=== PATIENT | female | born 1955 | race Caucasian/White ===

== ENCOUNTER 2016-06-13 12:59 | Emergency (ER) | payer BC, OTHER ==
[2016-06-13] MEDS ORDERED: SODIUM CHLORIDE 0.9% 500 ML IV ONE (13:46)
[2016-06-13] MEDS ORDERED: ONDANSETRON 4 MG/2 ML VIAL IVP STA (13:46)
[2016-06-13] MEDS ORDERED: fentaNYL 100 MCG/2 ML VIAL IVP STA (13:46)
[2016-06-13] MEDS ORDERED: fentaNYL 100 MCG/2 ML VIAL ONE (13:53)
[2016-06-13] MEDS ORDERED: ONDANSETRON 4 MG/2 ML VIAL ONE (13:53)
[2016-06-13] MEDS ORDERED: IOPAMIDOL-300 100 ML VIAL IVP ONE (15:20)
[2016-06-13] MEDS ORDERED: ACETAMINOPHEN 1,000 MG/100 ML 100 ML IV STA (15:43)
[2016-06-13] MEDS ORDERED: ACETAMINOPHEN 1,000 MG/100 ML 100 ML IV ONE (15:45)
== END 2016-06-13 16:54 | disposition home or self-care (01) ==
DX: R07.89 Other chest pain (principal); I48.91 Unspecified atrial fibrillation; Z79.01 Long term (current) use of anticoagulants; I10 Essential (primary) hypertension; Z86.73 Personal history of transient ischemic attack (TIA), and cerebral infarction without residual deficits
CPT/HCPCS: 36415; 70450; 71010; 71275; 80053; 81001; 83690; 84484; 85025; 85610; 93005; 93010; 96365; 96375; 99284; J0131; Q9967

== ENCOUNTER 2016-10-23 14:18 | Outpatient (CLI) | payer OTHER, BC | END 2016-10-23 14:19 | disposition home or self-care (01) | LOC: SC 14:18 | PROVIDERS: ATTEND Specialist | DX: G47.30 Sleep apnea, unspecified (principal); G47.8 Other sleep disorders; R06.83 Snoring; G47.10 Hypersomnia, unspecified | CPT/HCPCS: 99204; 99212 ==

== ENCOUNTER 2016-11-30 20:03 | Outpatient (CLI) | payer OTHER, BC | END 2016-11-30 20:04 | disposition home or self-care (01) | LOC: SC 20:03 | PROVIDERS: ATTEND Specialist | DX: G47.33 Obstructive sleep apnea (adult) (pediatric) (principal); G47.61 Periodic limb movement disorder | CPT/HCPCS: 95810 ==

== ENCOUNTER 2016-12-03 15:44 | Outpatient (CLI) | payer OTHER, BC ==
--- NOTE | 2016-12-04 16:48 | Mammography Report ---
DIGITAL SCREENING MAMMOGRAM: 12/03/2016 CLINICAL INDICATION: A 61-year-old with history of benign right breast biopsy for screening. COMPARISON: 06/2014, 03/2013, 11/2011, 11/2010, 10/2009, 10/2008, 04/2007, 04/2006 TECHNIQUE: Routine CC and MLO projections were obtained of the breasts. FINDINGS: The breasts again demonstrate heterogeneously dense fibroglandular parenchyma bilaterally. Intramammary lymph nodes are stable. No suspicious masses, clustered microcalcifications, or regio ns of architectural distortion are identified. IMPRESSION: BENIGN FINDINGS. RECOMMENDATION: Routine annual screening unless otherwise clinically indicated. BIRADS CATEGORY 2 - BENIGN FINDINGS. STANDARD QUALIFYING STATEMENTS 1. This examination was reviewed with the aid of Computer-Aided Detection (CAD). 2. A negative or benign imaging report should not delay biopsy if clinically suspicious findings are present. Consider surgical consultation if warranted. More than 5% of cancers are not identified by i maging. 3. Dense breasts may obscure an underlying neoplasm. JOB #: [id number] EXT JOB #:[id number]
== END 2016-12-03 15:45 | disposition home or self-care (01) ==
LOC: DI.N 15:44
PROVIDERS: ATTEND Family Medicine
DX: Z12.31 Encounter for screening mammogram for malignant neoplasm of breast (principal)
CPT/HCPCS: 77067

== ENCOUNTER 2016-12-18 15:27 | Outpatient (CLI) | payer OTHER, BC | END 2016-12-18 15:28 | disposition home or self-care (01) | LOC: SC 15:27 | PROVIDERS: ATTEND Specialist | DX: G47.33 Obstructive sleep apnea (adult) (pediatric) (principal); R53.83 Other fatigue | CPT/HCPCS: 99212; 99213 ==

== ENCOUNTER 2018-07-22 08:00 | Outpatient (CLI) | payer MEDICARE, BC | END 2018-07-22 23:59 | disposition home or self-care (01) | LOC: LAB.WCP 08:00 | PROVIDERS: ATTEND Family Medicine | DX: Z51.81 Encounter for therapeutic drug level monitoring (principal); Z79.01 Long term (current) use of anticoagulants ==

== ENCOUNTER 2020-01-18 12:35 | Outpatient (CLI) | payer MEDICARE, BC, OTHER | END 2020-01-18 12:36 | disposition home or self-care (01) | LOC: LAB 12:35 | PROVIDERS: ATTEND Ophthalmology | DX: Z01.818 Encounter for other preprocedural examination (principal); H25.11 Age-related nuclear cataract, right eye; Z20.828 Contact with and (suspected) exposure to other viral communicable diseases ==

== ENCOUNTER 2020-01-21 07:59 | Day surgery (SDC) | payer OTHER ==
[~2020-01-21 07:59] MED LIST: CYCLOPENTOLATE 1% OPHTH DROPS 2 ML ONE; KETOROLAC 0.45% OPHTH DROPS ONE; PHENYLEPHRINE 2.5% OPHTH 2 ML DROPS ONE; PROPARACAINE 0.5% OPHTH DROPS 15 ML ONE
[2020-01-21] MEDS ORDERED: LACTATED RINGERS 500 ML IV ONE ×2 (08:15→10:10)
--- NOTE | 2020-01-21 08:44 | ANESTHESIA ---
Pre-Anesthesia VS, & Labs - Diagnosis right senile cataract - Procedure right cataract extraction with iol Vital Signs: Temp Pulse Resp BP Pulse Ox 37.2 C 103 H 18 151/60 H 95 01/21/20 08:15 01/21/20 08:15 01/21/20 08:15 01/21/20 08:15 01/21/20 08:15 Height: 5 ft 3 in Weight (kg): 105.5 kg Body Mass Index: 41.2 BMI Classification: Morbidly Obese - NPO >8 hours - Is Patient ?: No Home Medications and Allergies Home Medications: Ambulatory Orders Potassium Chloride [K-Dur] 20 meq PO DAILY 01/21/20 Cetirizine HCl [Zyrtec] 10 mg PO DAILY 08/09/14 Levothyroxine [Synthroid] 100 mcg PO DAILY 08/09/14 Warfarin [Coumadin] 5 mg PO DAILY 08/09/14 diltiaZEM CD [Cardizem Cd] 240 mg PO DAILY 08/09/14 Albuterol Sulfate [Proair Hfa Inhaler] 1 mg INH DAILY 06/13/16 Budesonide/Formoterol 80/4.5 [Symbicort] 2 mg PO BID 06/13/16 Estrogen,Con/M-Progest Acet [Prempro 0.625-2.5 mg Tablet] 1 ea PO DAILY 06/13/16 Folic Acid 0.8 mg PO DAILY 06/13/16 Levalbuterol Tartrate [Xopenex Hfa] 1 mg INH DAILY 06/13/16 Pantoprazole Sodium 40 mg PO DAILY 06/13/16 Theophylline [Theodur] 200 mg PO DAILY 06/13/16 Vit D 06/13/16 allopurinoL [Allopurinol] 100 mg PO DAILY 06/13/16 diphenhydrAMINE [Benadryl] 25 mg PO DAILY 06/13/16 Potassium Chloride [K-Dur] 20 meq PO DAILY 01/21/20 Allergies/Adverse Reactions: Allergies Allergy/AdvReac Type Severity Reaction Status Date / Time codeine Allergy Hives Verified 08/09/14 13:48 morphine Allergy Hives Verified 08/09/14 13:48 Anes History & Medical History - Anesthetic History Anesthesia Complications: reports: No previous complications - Medical History Cardiovascular: reports: Hypertension, High cholesterol, Atrial fibrillation (on coumadin, SR today, patient states goes in and out.) Pulmonary: reports: Asthma, Pneumonia Gastrointestinal: reports: GERD, Cholelithiasis Urinary: reports: Frequency Neuro: reports: CVA (left weakness as only residual) Musculoskeletal: reports: Osteoarthritis, Gout Endocrine/Autoimmune: reports: HyPOthyroidism Skin: reports: None Smoking Status: Never smoker - Surgical History General: Cholecystectomy, Gastric surgery Gynecologic: Other Orthopedic: Knee replacement Exam Dental: WNL Mouth Opening: Greater than 4 Fingerbreadths Neck Mobility: Normal Mallampati classification: III Thyromental Distance: greater than 6 cm Respiratory: Lungs clear Cardiovascular: Regular rate, Normal S1, Normal S2 Mental/Cognitive Status: Alert/Oriented X3 Plan Anesthesia Type: MAC Consent for Procedure(s) Verified and Reviewed: Yes Code Status: Attempt Resuscitation ASA classification: 3-Severe systemic disease Is this case an emergency?: No
[2020-01-21] MEDS ORDERED: TIMOLOL 0.5% OPHTH DROPS ONE (09:33)
[2020-01-21] MEDS ORDERED: TRIAMCIN/MOXIFLOX OPHTHALMIC 0.6 ML VIAL IO ONE ×2 (09:33→09:44)
[2020-01-21] MEDS ORDERED: BSS/LIDOCAINE/EPINEPHRINE 1 ML SYRINGE ONE (09:33)
[2020-01-21] MEDS ORDERED: VANCOMYCIN OPHTHALMI 8MG/0.8ML 8 MG/0.8 ML SYRINGE IO ONE ×2 (09:33→09:44)
[2020-01-21] MEDS ORDERED: BRIMONIDINE 0.2% OPHTH DROPS 5 ML ONE (09:33)
[2020-01-21] MEDS ORDERED: EPINEPHrine 1 MG/ML AMP ONE (09:33)
[2020-01-21] MEDS ORDERED: BRIMONIDINE 0.2% OPHTH DROPS 5 ML OPTH ONE (09:41)
[2020-01-21] MEDS ORDERED: EPINEPHrine 1 MG/ML AMP IR ONE (09:42)
[2020-01-21] MEDS ORDERED: MIDAZOLAM 2 MG/2 ML VIAL IVP ONE (09:42)
[2020-01-21] MEDS ORDERED: CHONDR SULF/HYALURONATE SYRINGE IO ONE (09:42)
[2020-01-21] MEDS ORDERED: TIMOLOL 0.5% OPHTH DROPS OPTH ONE (09:43)
[2020-01-21] MEDS ORDERED: ROPIVACAINE 0.2% PF 10 ML AMPULE EPI ONE (09:43)
[2020-01-21] MEDS ORDERED: PROPARACAINE 0.5% OPHTH DROPS 15 ML EACHEYE ONE (09:44)
[2020-01-21 10:29] VITALS: BP 136/55
--- NOTE | 2020-01-21 12:47 | OPERATIVE REPORT ---
DATE OF SERVICE: 01/21/2020 Physician: Lew Steen MD PREOPERATIVE DIAGNOSIS: Visually significant cataract, right eye. This was her first cataract surge ry. POSTOPERATIVE DIAGNOSIS: Visually significant cataract, right eye. This was her first cataract surg ethan. PROCEDURE: Phacoemulsification with posterior chamber intraocular lens implant, right eye. SURGEON: Lew Steen MD ANESTHESIA: Monitored anesthesia care. COMPLICATIONS: None. OPERATIVE INDICATIONS: This is a 64-year-old woman with progressive vision loss in the right eye due to 3+ nuclear sclerotic cataract. Best corrected visual acuity was 20/25, with glare to hand motion vision in the right eye. Indications for surgery are overall decrease in vision, difficulty seeing words on a computer screen, difficulty reading, difficulty seeing words, closed caption or game score s on TV, difficulty seeing street signs, difficulty driving in low light or at night, difficulty driv ing at night because of headlights from other vehicles, and difficulty with glare or bright lights in any situation. She was consented at length concerning risks and benefits of cataract surgery, after which she expressed a desire to proceed with surgery. OPERATIVE PROCEDURE: The patient was taken to OR #3 and placed under monitored anesthesia care. A s urgical timeout was conducted confirming correct patient, correct procedure, and correct surgical sit e. She was given topical anesthesia, and prepped and draped in the usual sterile fashion. The eye w as entered at the 12 and 9 o'clock positions. Intracameral Shugarcaine was injected into the anterio r chamber, followed by Viscoat. A continuous-tear curvilinear capsulorrhexis was performed. The nuc leus was hydrodissected and phacoemulsified. The cortex was evacuated using automated infusion and a spiration. Provisc was injected in the capsular bag, and a 19.0 diopter intraocular lens was inserte d into the bag. Infusion and aspiration was used to evacuate the viscoelastic materials. The eye wa s inflated to physiologic pressure using balanced salt solution and found to be watertight. Approxim ately 0.25 mL of a mixture of triamcinolone and moxifloxacin was injected transsclerally into the vit reous in the inferotemporal quadrant. An additional 0.55 mL of a mixture of triamcinolone, moxifloxa patrick and vancomycin was injected subconjunctivally in the superior quadrant for infection and inflamma tion prophylaxis. Wound integrity was checked with Weck-Anamika sponges. The patient was taken from the Operating Room in good condition good condition and given postoperative instructions. TD: 01/21/2020 10:11
--- NOTE | 2020-01-21 13:26 | ANESTHESIA POST OP EVALUATION ---
Anesthesia Post Eval - Post Anesthesia Eval Vitals: Last Vital Signs Temp 36.7 C 01/21/20 10:15 Pulse 90 01/21/20 10:15 Resp 16 01/21/20 10:15 BP 136/55 H 01/21/20 10:15 Pulse Ox 100 01/21/20 10:15 CV Function Including HR & BP: positive: Stable Pain Control: positive: Satisfactory Nausea & Vomiting: positive: Negative Mental Status: positive: Patient Participates Respiratory Status: Airway Patent Hydration Status: Satisfactory Anesthesia Complications: positive: None
== END 2020-01-21 08:00 | disposition home or self-care (01) ==
LOC: SDS 07:59
PROVIDERS: ATTEND Ophthalmology
DX: H25.11 Age-related nuclear cataract, right eye (principal); I48.91 Unspecified atrial fibrillation; I10 Essential (primary) hypertension; J45.909 Unspecified asthma, uncomplicated; K21.9 Gastro-esophageal reflux disease without esophagitis; E78.00 Pure hypercholesterolemia, unspecified; E66.01 Morbid (severe) obesity due to excess calories; Z68.41 Body mass index [BMI] 40.0-44.9, adult; I69.954 Hemiplegia and hemiparesis following unspecified cerebrovascular disease affecting left non-dominant side; M10.9 Gout, unspecified; M19.90 Unspecified osteoarthritis, unspecified site; E03.9 Hypothyroidism, unspecified; R35.0 Frequency of micturition; Z79.01 Long term (current) use of anticoagulants; Z79.51 Long term (current) use of inhaled steroids
CPT/HCPCS: 66984; A9270; J3490; J7120; V2632

== ENCOUNTER 2020-01-27 08:00 | Outpatient (CLI) | payer BC, MEDICARE, OTHER | END 2020-01-27 23:59 | disposition home or self-care (01) | LOC: LAB.WCP 08:00 | PROVIDERS: ATTEND Family Medicine | DX: Z79.01 Long term (current) use of anticoagulants (principal) ==

== ENCOUNTER 2020-08-18 15:32 | Outpatient (CLI) | payer OTHER ==
--- NOTE | 2020-08-19 09:38 | Mammography Report ---
BILATERAL DIGITAL SCREENING MAMMOGRAM 3D/2D: 08/18/2020 CLINICAL: Family history of breast cancer. Routine screening. Comparison is made to exams dated: 12/10/2018 mammogram, 12/03/2016 mammogram, 07/23/2014 mammogram, mammogram - [facility], 03/06/2012 mammogram, and 12/26/2010 mammogram - [facility]. The tissue of both breasts is predominantly fatty. There is a new irregular asymmetry with an indistinct margin in the left breast middle depth central to the nipple seen on the craniocaudal view only. No other significant masses, calcifications, or other findings are seen in either breast. IMPRESSION: INCOMPLETE: NEEDS ADDITIONAL IMAGING EVALUATION The new irregular asymmetry in the left breast is indeterminate. Additional views with possible ultr asound are recommended. This exam was interpreted at Station ID: [id number]. NOTE: For mammograms, a report in lay terms will be sent to the patient. Approximately 15% of breast malignancies will not be visualized mammographically. In the management of a palpable breast mass, a negative mammogram must not discourage biopsy of a clinically suspicious lesion. Electronically Signed By: Riki Weaver acr/:08/18/2020 16:49:31 ACR BI-RADS Category 0: Incomplete 3340F PARENCHYMAL PATTERN: (F) - The breast(s) demonstrate(s) diffuse fatty replacement. BI-RADS CATEGORY: (0) - 0 Mammo and [place] [id number] Immediate follow-up LATERALITY: (L)
== END 2020-08-18 15:33 | disposition home or self-care (01) ==
LOC: DI.N 15:32
PROVIDERS: ATTEND Nurse Practitioner Acute Care
DX: Z12.31 Encounter for screening mammogram for malignant neoplasm of breast (principal); Z85.3 Personal history of malignant neoplasm of breast

== ENCOUNTER 2020-10-27 09:23 | Outpatient (CLI) | payer OTHER ==
--- NOTE | 2020-10-28 11:25 | Mammography Report ---
UNILATERAL LEFT DIGITAL DIAGNOSTIC MAMMOGRAM 3D/2D: 10/27/2020 CLINICAL: Patient returns today to evaluate an asymmetry in the left breast. Comparison is made to exams dated: 08/18/2020 mammogram, 12/10/2018 mammogram, 12/03/2016 mammogram, 06/28 mammogram, 04/14/2013 mammogram - [facility], and 03/06/2012 mammogram - [facility]. The tissue of left breast is predominantly fatty. There is an oval fat containing asymmetry in the left breast middle depth central to the nipple seen on the craniocaudal view only. No other significant masses or calcifications are seen in the breast. IMPRESSION: INCOMPLETE: NEEDS ADDITIONAL IMAGING EVALUATION The oval fat containing asymmetry in the left breast most likely is an intramammary node but this is not definitive. An ultrasound will be performed for further evaluation. This exam was interpreted at Station ID: [id number]. NOTE: For mammograms, a report in lay terms will be sent to the patient. Approximately 15% of breast malignancies will not be visualized mammographically. In the management of a palpable breast mass, a negative mammogram must not discourage biopsy of a clinically suspicious lesion. Electronically Signed By: Jose Lambert M.D. jr/:10/27/2020 10:36:47 ACR BI-RADS Category 0: Incomplete 3340F PARENCHYMAL PATTERN: (F) - The breast(s) demonstrate(s) diffuse fatty replacement. BI-RADS CATEGORY: (0) - 0 RECOMMENDATION: (ADDMAM) - Recommend additional mammographic views. [id number] Immediate follow-up LATERALITY: (B)
--- NOTE | 2020-10-28 11:25 | Ultrasound Report ---
LIMITED ULTRASOUND OF LEFT BREAST: 10/27/2020 CLINICAL: Patient returns today to evaluate a focal asymmetry in the left breast. Comparison is made to exams dated: 10/27/2020 mammogram, 08/18/2020 mammogram, 12/10/2018 mammogram, 12/03 mammogram, 07/23/2014 mammogram, and 04/14/2013 mammogram - [facility]. Color flow and real-time ultrasound of the left breast 12-2 o'clock region were performed. Dinero sca le images of the real-time examination were reviewed. There is a benign lymph node in the left breast middle depth. IMPRESSION: BENIGN There is no sonographic evidence of malignancy. The lymph node in the left breast is benign. Return to annual mammogram screening schedule is recommended. This exam was interpreted at Station ID: [id number]. Electronically Signed By: Jose Lambert M.D., jr/nitesh:10/27/2020 10:46:17 Ultrasound BI-RADS: 2 Benign BI-RADS CATEGORY: (2) - 2 Mammogram [id number] return to screening LATERALITY: (B)
== END 2020-10-27 09:24 | disposition home or self-care (01) ==
LOC: DI 09:23
PROVIDERS: ATTEND Nurse Practitioner Acute Care
DX: R92.8 Other abnormal and inconclusive findings on diagnostic imaging of breast (principal)

== ENCOUNTER 2021-05-19 08:00 | Outpatient (CLI) | payer BC, MEDICARE, OTHER ==
[2021-05-19 12:30] LABS: BASOPHILS # (AUTO) 0.1 10^3/uL (0.0-0.1); EOSINOPHILS # (AUTO) 0.1 10^3/uL (0.0-0.7); EOSINOPHILS % (AUTO) 1.6 %; HCT - HEMATOCRIT 41.4 % (37.0-47.0); LYMPHOCYTES # (AUTO) 2.2 10^3/uL (1.5-3.5); LYMPHOCYTES % (AUTO) 27.6 %; MEAN CORPUSCULAR HGB CONC 31.4 g/dL (32.0-36.0); MEAN CORPUSCULAR VOLUME 95.6 fL (81.0-99.0); MEAN PLATELET VOLUME 10.6 fL (7.9-10.8); MONOCYTES # (AUTO) 0.4 10^3/uL (0.0-1.0); MONOCYTES % (AUTO) 5.2 %; PLT - PLATELET COUNT 314 10^3/uL (130-450); RED BLOOD COUNT 4.33 10^6/uL (4.20-5.40); RED CELL DISTRIBUTION WIDTH 13.4 % (12.0-15.0); WHITE BLOOD COUNT 7.9 x10^3/uL (4.8-10.8)
[2021-05-19 12:48] LABS: ALBUMIN 4.2 g/dL (3.2-5.5); ALBUMIN/GLOBULIN RATIO 1.4 (1.0-2.2); ALKALINE PHOSPHATASE 126 IU/L (42-121); ALT ALANINE AMINOTRANSFERASE 14 IU/L (10-60); AST ASPARTATE AMINOTRANSFERASE 17 IU/L (10-42); BUN - BLOOD UREA NITROGEN 14 mg/dL (6-20); CALCIUM 9.5 mg/dL (8.5-10.3); CARBON DIOXIDE - CO2 22 mmol/L (21-32); CHLORIDE 103 mmol/L (101-111); CHOL/HDL RATIO 3.5 (<4.4); CHOLESTEROL 169 mg/dL; CREATININE 0.6 mg/dL (0.4-1.0); GFR - MDRD 99 (>89); GLUCOSE 107 mg/dL (70-100); HDL CHOLESTEROL 48 mg/dL; LDL CHOLESTEROL,CALCULATED 104 mg/dL; LDL/HDL RATIO 2.2 (<4.4); POTASSIUM 3.8 mmol/L (3.5-5.0); SODIUM 136 mmol/L (135-145); TOTAL PROTEIN 7.3 g/dL (6.7-8.2); TRIGLYCERIDES 86 mg/dL; VLDL CHOLESTEROL 17 mg/dL
[2021-05-19 13:19] LABS: ESTIMATED AVERAGE GLUCOSE 120 mg/dL (70-100); HEMOGLOBIN A1c% 5.8 % (4.27-6.07)
== END 2021-05-19 23:59 | disposition home or self-care (01) ==
LOC: LAB.WCP 08:00
PROVIDERS: ATTEND Family Medicine
DX: I10 Essential (primary) hypertension (principal); E66.9 Obesity, unspecified
CPT/HCPCS: 36415; 80053; 80061; 83036; 83721; 85025

== ENCOUNTER 2021-06-19 07:00 | Outpatient (CLI) | payer BC, MEDICARE, OTHER ==
[2021-06-19 12:29] LABS: FECAL OCCULT BLOOD (FIT) NEGATIVE (NEGATIVE)
== END 2021-06-19 23:59 | disposition home or self-care (01) ==
LOC: LAB.N 07:00
PROVIDERS: ATTEND Family Medicine
DX: Z12.11 Encounter for screening for malignant neoplasm of colon (principal)
CPT/HCPCS: 82274

== ENCOUNTER 2022-03-23 09:07 | Outpatient (CLI) | payer OTHER ==
--- NOTE | 2022-03-26 09:12 | Mammography Report ---
BILATERAL DIGITAL SCREENING MAMMOGRAM 3D/2D: 03/23/2022 CLINICAL: Routine screening. Comparison is made to exams dated: 10/27/2020 mammogram, 08/18/2020 mammogram, 12/10/2018 mammogram, 12/03 mammogram, and 07/23/2014 mammogram - [facility]. There are scattered areas of fibroglandular density in both breasts (category b / 25%-50% glandular t issue). No significant masses, calcifications, or other findings are seen in either breast. There has been no significant interval change. IMPRESSION: NEGATIVE There is no mammographic evidence of malignancy. A 1 year screening mammogram is recommended. Based on the Tyrer Cuzick model (a risk assessment model) the patients lifetime risk is 6.5% and her 10 year risk is 3.8%. According to the ACR, ACS, and NCCN guidelines, an annual breast MRI exam lizette g with mammogram is recommended if the patients lifetime risk is 20% or greater. This exam was interpreted at Station ID: [id number]. NOTE: For mammograms, a report in lay terms will be sent to the patient. Approximately 15% of breast malignancies will not be visualized mammographically. In the management of a palpable breast mass, a negative mammogram must not discourage biopsy of a clinically suspicious lesion. Electronically Signed By: Paulo albrecht/nitesh:03/23/2022 11:09:52 ACR BI-RADS Category 1: Negative 3341F PARENCHYMAL PATTERN: (A) - The breast(s) demonstrate(s) scattered fibroglandular densities. BI-RADS CATEGORY: (1) - 1 RECOMMENDATION: (ANNUAL) - Recommend routine annual screening mammography. [id number] 1 year screening LATERALITY: (B)
== END 2022-03-23 09:08 | disposition home or self-care (01) ==
LOC: DI 09:07
PROVIDERS: ATTEND Nurse Practitioner Acute Care
DX: Z12.31 Encounter for screening mammogram for malignant neoplasm of breast (principal)

== ENCOUNTER 2022-04-26 10:55 | Outpatient (CLI) | payer MEDICARE, BC ==
--- NOTE | 2022-04-26 13:14 | XRAY Report ---
PROCEDURE: Wrist 3 View RT INDICATIONS: NONDISPLACED FRACURE OF HEAD OF RIGHT RADIUS TECHNIQUE: 4 views of the wrist were acquired. COMPARISON: None FINDINGS: Bones: No displaced fracture is apparent. There is sclerosis in the distal radius. Questionable dorsa l cortical irregularity on lateral view. Scattered arthrosis, severe at the first CMC joint. Soft tissues: No suspicious calcifications. IMPRESSION: Possible nondisplaced injury of the distal radius with mild sclerosis and questionable dorsal cortica l irregularity, correlate for point tenderness. No relevant prior imaging is available at this time. Severe degenerative changes of the first CMC joint. Reviewed by: Juan Miguel Briseno MD on 04/26/2022 1:13 PM PST Approved by: Juan Miguel Briseno MD on 04/26/2022 1:13 PM PST Station ID: [id number]
== END 2022-04-26 10:56 | disposition home or self-care (01) ==
LOC: DI 10:55
PROVIDERS: ATTEND Physician Assistant Medical
DX: S52.124A Nondisplaced fracture of head of right radius, initial encounter for closed fracture (principal); M18.11 Unilateral primary osteoarthritis of first carpometacarpal joint, right hand

== ENCOUNTER 2022-08-02 09:55 | Outpatient (CLI) | payer MEDICARE, BC ==
--- NOTE | 2022-08-03 07:07 | DEXA Report ---
PROCEDURE: Dexa Spine and/or Hip INDICATIONS: POST MENOPAUSAL TECHNIQUE: Dual energy x-ray absorptiometry (DXA) was performed on a [address] [facility]. Regions measur ed are the AP Spine, femoral neck, and if needed forearm. COMPARISON: None. FINDINGS: Lumbar Spine: Bone Mineral Density 0.965 g/cm/cm,T score -1.9, osteopenia Left Femoral Neck: Bone Mineral Density 0.778 g/cm/cm, T score -1.9, osteopenia Left Hip: Bone Mineral Density 0.777 g/cm/cm,T score -1.8, osteopenia (T score greater or equal to -1.0: NORMAL) (T score from -1.1 to -2.4: OSTEOPENIA) (T score less than or equal to -2.5 to: OSTEOPOROSIS) Impression: Bone mineral density within the osteopenia range. Patients with diagnosis of osteoporosis or osteopenia should have regular bone mineral density assess ment. For those eligible for Medicare, routine testing is allowed once every 2 years. Testing frequ ency can be increased for patients who have rapidly progressing disease or for those who are receivin g medical therapy to restore bone mass. Reviewed by: Dave Richards MD on 08/02/2022 1:05 PM PDT Approved by: Dave Richards MD on 08/02/2022 1:05 PM PDT Station ID: [id number]
== END 2022-08-02 09:56 | disposition home or self-care (01) ==
LOC: DI 09:55
PROVIDERS: ATTEND Nurse Practitioner
DX: Z78.0 Asymptomatic menopausal state (principal); M85.89 Other specified disorders of bone density and structure, multiple sites

== ENCOUNTER 2023-02-25 12:00 | Outpatient (CLI) | payer MEDICARE, BC | END 2023-02-25 12:15 | disposition home or self-care (01) | LOC: LAB.N 12:00 | PROVIDERS: ATTEND Physician Assistant Medical | DX: N30.00 Acute cystitis without hematuria (principal) | CPT/HCPCS: 87086 ==

== ENCOUNTER 2023-03-12 08:00 | Outpatient (CLI) | payer MEDICARE, BC ==
[2023-03-12 18:28] LABS: BILIRUBIN,URINE NEGATIVE (NEGATIVE); GLUCOSE, URINE (UA) NEGATIVE (NEGATIVE); KETONES,URINE (UA) NEGATIVE (NEGATIVE); LEUKOCYTE ESTERASE, URINE NEGATIVE (NEGATIVE); NITRITE,URINE NEGATIVE (NEGATIVE); OCCULT BLOOD,URINE LARGE (NEGATIVE); PROTEIN,URINE 30 mg/dL (NEGATIVE); UROBILINOGEN,URINE 1 (NORMAL) E.U./dL (NORMAL)
[2023-03-12 18:50] LABS: CLARITY,URINE CLOUDY (CLEAR)
[2023-03-12 18:51] LABS: BACTERIA,URINE Few /HPF (None Seen); RBC,URINE TNTC /HPF (0-5); SQUAMOUS EPITHELIAL CELL,UR RARE Squamous (<= Few); WBC,URINE 0-3 /HPF (0-5)
== END 2023-03-12 23:59 | disposition home or self-care (01) ==
LOC: LAB.WCP 08:00
PROVIDERS: ATTEND Physician Assistant
DX: N30.01 Acute cystitis with hematuria (principal)
CPT/HCPCS: 81001; 87086

== ENCOUNTER 2023-03-20 11:00 | Outpatient (CLI) | payer MEDICARE, BC ==
[2023-03-20 11:13] LABS: BASOPHILS # (AUTO) 0.1 10^3/uL (0.0-0.1); BASOPHILS % (AUTO) 0.8 %; EOSINOPHILS # (AUTO) 0.1 10^3/uL (0.0-0.7); EOSINOPHILS % (AUTO) 0.9 %; HCT - HEMATOCRIT 42.4 % (37.0-47.0); LYMPHOCYTES # (AUTO) 1.7 10^3/uL (1.5-3.5); LYMPHOCYTES % (AUTO) 19.3 %; MEAN CORPUSCULAR HEMOGLOBIN 29.7 pg (27.0-31.0); MEAN CORPUSCULAR HGB CONC 30.7 g/dL (32.0-36.0); MEAN PLATELET VOLUME 9.7 fL (7.9-10.8); MONOCYTES # (AUTO) 0.5 10^3/uL (0.0-1.0); MONOCYTES % (AUTO) 5.9 %; NEUTROPHILS # (AUTO) 6.2 10^3/uL (1.5-6.6); NEUTROPHILS % (AUTO) 72.4 %; PLT - PLATELET COUNT 327 10^3/uL (130-450); RED BLOOD COUNT 4.37 10^6/uL (4.20-5.40); RED CELL DISTRIBUTION WIDTH 13.2 % (12.0-15.0); WHITE BLOOD COUNT 8.5 x10^3/uL (4.8-10.8)
[2023-03-20 11:28] LABS: ALBUMIN 4.5 g/dL (3.2-5.5); ALBUMIN/GLOBULIN RATIO 1.7 (1.0-2.2); ALKALINE PHOSPHATASE 143 IU/L (42-121); ALT ALANINE AMINOTRANSFERASE 10 IU/L (10-60); AMYLASE 27 U/L (28-100); AST ASPARTATE AMINOTRANSFERASE 13 IU/L (10-42); BILIRUBIN,TOTAL 0.7 mg/dL (0.2-1.0); BUN - BLOOD UREA NITROGEN 14 mg/dL (6-20); CARBON DIOXIDE - CO2 24 mmol/L (21-32); CHLORIDE 104 mmol/L (101-111); CREATININE 0.7 mg/dL (0.6-1.3); GFR - MDRD 83 (>89); GLUCOSE 97 mg/dL (74-104); POTASSIUM 3.8 mmol/L (3.5-4.5); SODIUM 138 mmol/L (135-145); TOTAL PROTEIN 7.1 g/dL (6.4-8.9)
[2023-03-20 11:30] LABS: LIPASE < 10 U/L (11-82)
== END 2023-03-20 11:01 | disposition home or self-care (01) ==
LOC: LAB 11:00
PROVIDERS: ATTEND Nurse Practitioner
DX: R10.31 Right lower quadrant pain (principal)
CPT/HCPCS: 36415; 80053; 82150; 83690; 85025

== ENCOUNTER 2023-03-31 08:54 | Outpatient (CLI) | payer MEDICARE, BC ==
--- NOTE | 2023-03-31 17:56 | Ultrasound Report ---
PROCEDURE: Abdomen Complete INDICATIONS: RLQ ABD PAIN TECHNIQUE: Real-time scanning was performed of the abdominal and retroperitoneal organs, with image documentatio n. COMPARISON: None. FINDINGS: Liver: Liver is normal in size and homogeneous in echotexture. Gallbladder: Absent Biliary ducts: Intrahepatic bile ducts are non-dilated. Extrahepatic bile duct caliber measures 4 m m. Normal is 6-7 mm or less in diameter, or 10 mm or less post-cholecystectomy. Pancreas: Visualized portions of the pancreas are sonographically normal. Spleen: Spleen is normal in size and homogeneous in echotexture. Kidneys: Kidneys are normal in size and echotexture. Right kidney measures 10.4 cm long; left kidne y measures 10.7 cm long. No hydronephrosis or nephrolithiasis. No solid masses. No complex renal cy stic lesions which require follow-up. Aorta: Visualized aorta is normal in caliber at less than 3 cm. Iliacs: Proximal common iliac arteries are normal in caliber at less than 2.5 cm. IVC: Intrahepatic inferior vena cava is patent. Miscellaneous: No free abdominal fluid. IMPRESSION: Unremarkable abdominal ultrasound. Reviewed by: Joan Ugalde MD on 03/31/2023 5:55 PM PST Approved by: Joan Ugalde MD on 03/31/2023 5:55 PM PST Station ID: [id number]
--- NOTE | 2023-03-31 17:58 | Ultrasound Report ---
PROCEDURE: Pelvic w/Transvaginal INDICATIONS: RLQ ABD PAIN TECHNIQUE: Real-time scanning was performed of the pelvic organs, with image documentation. Additional endovagi nal scanning was necessary due to incomplete visualization of the adnexal and endometrial structures by transabdominal scanning. COMPARISON: None. FINDINGS: Uterus: Uterus is anteverted and normal in size at 6.2 x 2.7 x 2.6 cm. The myometrium is homogeneou s. The endometrium measures 1 mm in combined thickness. Trace fluid is present in the cervical charley l. Ovaries: The ovaries were not visualized. Other: No pathologic free abdominal or pelvic fluid. IMPRESSION: Study. Ovaries not visualized. Unremarkable uterine ultrasound. Reviewed by: Joan Ugalde MD on 03/31/2023 5:56 PM PST Approved by: Joan Ugalde MD on 03/31/2023 5:56 PM PST Station ID: [id number]
== END 2023-03-31 08:55 | disposition home or self-care (01) ==
LOC: DI 08:54
PROVIDERS: ATTEND Nurse Practitioner
DX: R10.31 Right lower quadrant pain (principal)

== ENCOUNTER 2023-05-21 10:59 | Outpatient (CLI) | payer OTHER ==
--- NOTE | 2023-05-22 11:53 | Mammography Report ---
BILATERAL DIGITAL DIAGNOSTIC MAMMOGRAM 3D/2D: 05/21/2023 CLINICAL: Occasional right breast pain. Due for bilateral exam. Comparison is made to exams dated: 03/23/2022 mammogram, 10/27/2020 mammogram, 08/18/2020 mammogram, mammogram, 12/03/2016 mammogram, and 07/23/2014 mammogram - [facility]. There are scattered areas of fibroglandular density in both breasts (category b / 25%-50% glandular t issue). No significant masses, calcifications, or other findings are seen in either breast. Because the macey ent does not have symptoms at time of exam, no BB marker was placed and no additional mammographic vi ews are indicated. IMPRESSION: NEGATIVE No mammographic evidence of malignancy. Because the patient was asymptomatic at time of exam, no jeana tional mammographic views or ultrasound are indicated. A 1 year screening mammogram is recommended. Clinical follow-up is also recommended, and further management of palpable abnormalities or other foc al signs or symptoms should be based on the results of clinical evaluation. If palpable abnormality o r other concerning symptom persists or progresses, further clinical evaluation should be considered. Findings and recommendations were conveyed to the patient during today's evaluation. Based on the Tyrer Cuzick model (a risk assessment model) the patient's lifetime risk is 6.1% and her 10 year risk is 3.9%. According to the ACR, ACS, and NCCN guidelines, an annual breast MRI exam lizette g with mammogram is recommended if the patients lifetime risk is 20% or greater. This exam was interpreted at Station ID: [id number]. NOTE: For mammograms, a report in lay terms will be sent to the patient. Approximately 15% of breast malignancies will not be visualized mammographically. In the management of a palpable breast mass, a negative mammogram must not discourage biopsy of a clinically suspicious lesion. Electronically Signed By: Erin Bonilla M.D., PH.D eb/:05/21/2023 11:39:30 ACR BI-RADS Category 1: Negative 3341F PARENCHYMAL PATTERN: (A) - The breast(s) demonstrate(s) scattered fibroglandular densities. BI-RADS CATEGORY: (1) - 1 Mammogram [id number] 1 year screening LATERALITY: (B)
== END 2023-05-21 11:00 | disposition home or self-care (01) ==
LOC: DI 10:59
PROVIDERS: ATTEND Nurse Practitioner Primary Care
DX: N64.4 Mastodynia (principal); R92.323 Mammographic fibroglandular density, bilateral breasts